=== PATIENT | male | born 1945 | race Caucasian/White ===

== ENCOUNTER 2016-08-25 19:09 | Emergency (ER) | payer MEDICARE, MEDICAID ==
[~2016-08-25] VITALS: Ht 182.9 cm; Wt 115.9 kg
[2016-08-25 19:32] LABS: GLUCOSE,POINT OF CARE 71 MG/DL (70-110)
[2016-08-25] MEDS ORDERED: THIA100 PO (19:40)
[2016-08-25] MEDS ORDERED: ATEN25 PO (19:40)
[2016-08-25] MEDS ORDERED: LEVO50 PO (19:40)
[2016-08-25] MEDS ORDERED: FURO20 PO (19:40)
[2016-08-25] MEDS ORDERED: VITAD1000 PO (19:40)
[2016-08-25] MEDS ORDERED: GABA-531 PO (19:40)
[2016-08-25] MEDS ORDERED: AMLO-512 PO (19:40)
[2016-08-25] MEDS ORDERED: INSNOV SQ (19:40)
[2016-08-25] MEDS ORDERED: METO-323 PO (19:40)
[2016-08-25] MEDS ORDERED: LISI-661 PO (19:40)
[2016-08-25] MEDS ORDERED: FERR-89 PO (19:40)
[2016-08-25] MEDS ORDERED: DULO60CA44 PO (19:40)
[2016-08-25] MEDS ORDERED: [UNRECOGNIZED DRUG - CODE] PO (19:40)
[2016-08-25] MEDS ORDERED: ASPI-556 PO (19:40)
[2016-08-25] MEDS ORDERED: HYDR25TA PO (19:40)
[2016-08-25] MEDS ORDERED: INSLAN SQ (19:40)
[2016-08-25] MEDS ORDERED: LEVE500T53 PO (19:40)
[2016-08-25 20:32] LABS: ANION GAP 10 mmol/L (8-16); CALCIUM, TOTAL 8.6 mg/dL (8.8-10.5); CARBON DIOXIDE 26 mmol/L (22-29); CHLORIDE 103 mmol/L (98-107); CREATININE 1.39 mg/dL (0.60-1.30); GLOMERULAR FILTR. RATE CALC 51 mL/min (>60); POTASSIUM 3.3 mmol/L (3.5-5.1); SODIUM SERUM 139 mmol/L (136-145); UREA NITROGEN, BLOOD 17 mg/dL (7-18)
[2016-08-25 20:45] LABS: ALANINE AMINOTRANSFERASE 72 U/L (12-78); ALBUMIN 3.6 g/dL (3.4-5.0); ASPARTATE AMINOTRANSFERASE 51 U/L (15-37); BASOPHILS % (AUTO) 0.3 % (0.0-2.0); BILIRUBIN,TOTAL 1.7 mg/dL (0.1-1.0); EOSINOPHILS % (AUTO) 2.3 % (1.0-6.0); HEMATOCRIT 35.2 % (41-53); HEMOGLOBIN 12.3 g/dL (13.5-17.5); LYMPHOCYTES # (AUTO) 1.2 K/uL (1.0-4.8); LYMPHOCYTES % (AUTO) 25.7 % (22.0-44.0); MEAN CORPUSCULAR HEMOGLOBIN 35.5 pg (26.0-34.0); MEAN CORPUSCULAR HGB CONC 34.9 G/dL (31.0-37.0); MEAN CORPUSCULAR VOLUME 102 fL (80-100); MONOCYTES # (AUTO) 0.4 K/uL (0.1-1.0); MONOCYTES % (AUTO) 9.6 % (2.0-9.0); NEUTROPHILS # (AUTO) 2.8 K/uL (1.8-7.7); NEUTROPHILS % (AUTO) 62.1 % (40.0-70.0); PLATELET COUNT (AUTO) 80 K/uL (150-450); RED BLOOD CELL COUNT(AUTO) 3.46 MIL/uL (4.50-5.90); RED CELL DISTRIBUTION WIDTH 14.5 % (11.5-14.5); TOTAL PROTEIN, SERUM 6.9 g/dL (6.4-8.2); WHITE BLOOD COUNT (AUTO) 4.5 K/uL (4.5-11.0)
[2016-08-25 21:00] LABS: RBC MORPHOLOGY COMMENT ABNORMAL RBC MORPH
[2016-08-25 21:01] LABS: APPEARANCE,URINE CLEAR (CLEAR); GLUCOSE, URINE (UA) NEGATIVE (NEGATIVE); KETONES,URINE NEGATIVE (NEGATIVE); LEUKOCYTE ESTERASE ,URINE NEGATIVE (NEGATIVE); OCCULT BLOOD,URINE NEGATIVE (NEGATIVE); PROTEIN,URINE NEGATIVE (NEGATIVE)
[2016-08-25 21:21] LABS: SQUAMOUS EPITHELIAL CELL,UR Few /LPF (None Seen)
[2016-08-25 21:22] LABS: RBC,URINE 0-2 /HPF (0-2); WBC,URINE 0-2 /HPF (0-5)
[2016-08-25 22:30] VITALS: BP 151/86
== END 2016-08-25 22:34 | disposition home or self-care (01) ==
LOC: EMS 19:11
DX: R53.1 Weakness (principal); F32.9 Major depressive disorder, single episode, unspecified; I11.9 Hypertensive heart disease without heart failure; E11.9 Type 2 diabetes mellitus without complications; F03.90 Unspecified dementia, unspecified severity, without behavioral disturbance, psychotic disturbance, mood disturbance, and anxiety; F17.210 Nicotine dependence, cigarettes, uncomplicated; Z95.1 Presence of aortocoronary bypass graft; Z79.4 Long term (current) use of insulin; Z79.82 Long term (current) use of aspirin
CPT/HCPCS: 36415; 80053; 80307; 81001; 82140; 82962; 85025; 99284; G0480